=== PATIENT | female | born 1955 | race Caucasian/White ===

== ENCOUNTER 2018-10-26 12:03 | Day surgery (SDC) | payer BC, OTHER ==
[~2018-10-26] VITALS: Ht 160 cm; Wt 58.9 kg
[~2018-10-26 12:03] MED LIST: LIDOCAINE 2% (SDV) 5 ML INJ ONE
[2018-10-26 12:51] VITALS: Ht 160 cm; Wt 58.9 kg
[2018-10-26] MEDS ORDERED: CHOLESTEROL (12:59)
[2018-10-26] MEDS ORDERED: [UNRECOGNIZED DRUG - OTHER] (12:59)
[2018-10-26] MEDS ORDERED: HTN (12:59)
[2018-10-26] MEDS ORDERED: HEARTBURN (12:59)
[2018-10-26] MEDS ORDERED: ELOQUIS (12:59)
[2018-10-26] MEDS ORDERED: DIABETIC (12:59)
[2018-10-26 13:13] VITALS: BP 168/74; PULSE 89; RESP 20
--- NOTE | 2018-10-26 14:17 | PREAC ---
Date/Time of Note Date/Time of Note DATE: 10/26/18 TIME: 14:16 Anesthesia Eval and Record Evaluation Time Pre-Procedure Interview DATE: 10/26/18 TIME: 14:16 Age 63 Sex female NPO: 8 hrs Preoperative diagnosis gerd Planned procedure egd, colonoscopy Past Medical History Past Medical History: Includes Cardio: HTN, Dyslipidemia, CAD, PPM/AICD Endo: Diabetes GI: GERD Heme: Anemia Surgery & Anesthesia Issues No known issue Meds Anticoagulation: No Beta Makenna within 24 hr: No Reason Beta Makenna not given: Pt. not on B-Makenna Reported Medications [Heartburn] No Conflict Check 10/26/18 [Eloquis] No Conflict Check 10/26/18 [Heart Meds.] No Conflict Check 10/26/18 [Diabetic] No Conflict Check 10/26/18 [Cholesterol] No Conflict Check 10/26/18 [Htn] No Conflict Check 10/26/18 Meds reviewed: Yes Allergies Coded Allergies: No Known Allergies (Verified Allergy, Unknown, 12/21/09) Allergies Reviewed: Yes Labs/Studies Labs Reviewed: Reviewed by anesthesiologist test: N/A Studies: ECG Pre-procedure Exam Last vitals Vital Signs Date Temp Pulse Resp B/P (MAP) Pulse Ox O2 O2 Flow FiO2 Time Delivery Rate 10/26/18 98.1 89 20 168/74 96 Room Air 13:13 (105) Airway: Adequate mouth opening, Adequate thyromental dist Mallampati: Mallampati II Teeth: Normal Lung: Normal Heart: Normal ASA Physical Status ASA physical status: 3 Emergency: None Planned Anesthetic General/MAC: Mask, MAC Pre-operative Attestations Prior to commencing anesthesia and surgery, the patient was re-evaluated, there was verification of: *The patient's identity *The results of appropriate recent lab work and preoperative vital signs *The above evaluation not changing prior to induction *Anesthetic plan, risk benefits, alternative and complications discussed with patient/family; questions answered; patient/family understands, accepts and w ishes to proceed. FAVIOLA DARLING Oct 26, 2018 14:17
[2018-10-26] MEDS ORDERED: PROPOFOL 20 ML ONE (14:26)
[2018-10-26 15:42] VITALS: BP 161/77; PULSE 74; RESP 20
--- NOTE | 2018-10-27 09:48 | PAC ---
Date/Time of Note Date/Time of Note DATE: 10/27/18 TIME: 09:48 Post-Anesthesia Notes Post-Anesthesia Note Last documented vital signs Vital Signs Date Temp Pulse Resp B/P (MAP) Pulse Ox O2 O2 Flow FiO2 Time Delivery Rate 10/26/18 74 20 161/77 97 Room Air 15:42 (105) 10/26/18 98.1 13:13 Activity: WNL Respiratory function: WNL Cardiovascular function: WNL Mental status: Baseline Pain reasonably controlled: Yes Hydration appropriate: Yes Nausea/Vomiting absent: Yes FAVIOLA DARLING Oct 27, 2018 09:48
== END 2018-10-26 16:14 | disposition home or self-care (01) ==
LOC: GIL 12:03
PROVIDERS: ATTEND Internal Medicine Gastroenterology
DX: R19.4 Change in bowel habit (principal); K64.8 Other hemorrhoids; K44.9 Diaphragmatic hernia without obstruction or gangrene; K21.9 Gastro-esophageal reflux disease without esophagitis; I10 Essential (primary) hypertension; E11.9 Type 2 diabetes mellitus without complications; I25.10 Atherosclerotic heart disease of native coronary artery without angina pectoris
CPT/HCPCS: 43239; 45378; 82962; 88305; 88312; Z7610